=== PATIENT | male | born 1950 | race Caucasian/White ===

== ENCOUNTER 2018-02-23 20:25 | Outpatient (CLI) | payer MEDICARE | END 2018-02-23 20:26 | disposition short-term general hospital (02) | LOC: EMS 20:25 | PROVIDERS: ATTEND Surgery | DX: R07.9 Chest pain, unspecified (principal); R53.83 Other fatigue | CPT/HCPCS: A0425; A0427 ==

== ENCOUNTER 2019-10-25 15:59 | Outpatient (CLI) | payer MEDICARE ==
--- NOTE | 2019-10-26 10:56 | XRAY Report ---
Reason: R HIP PAIN Procedure Date: 10/25/2019 Accession Number: [id number] / [id number] Procedure: XR - Pelvis 1 View CPT Code: Final Report FULL RESULT: EXAM: PELVIS RADIOGRAPHY EXAM DATE: 10/25/2019 04:49 PM. CLINICAL HISTORY: R HIP PAIN. COMPARISON: None. TECHNIQUE: 1 view. FINDINGS: Bones: DJD lower lumbosacral spine No fracture or bone lesion. Joints: Bilateral hips mild joint space narrowing. Soft Tissues: Normal. No soft tissue swelling. IMPRESSION: Mild DJD bilateral hips RADIA
== END 2019-10-25 16:00 | disposition home or self-care (01) ==
LOC: DI 15:59
PROVIDERS: ATTEND Physician Assistant Medical
DX: M16.0 Bilateral primary osteoarthritis of hip (principal)
CPT/HCPCS: 72170

== ENCOUNTER 2021-03-25 08:00 | Outpatient (CLI) | payer MEDICARE | END 2021-03-25 23:59 | disposition home or self-care (01) | LOC: LAB.N 08:00 | PROVIDERS: ATTEND Nurse Practitioner | DX: R05 Cough (principal); Z20.822 Contact with and (suspected) exposure to COVID-19 ==

== ENCOUNTER 2021-03-28 14:30 | Outpatient (CLI) | payer MEDICARE ==
--- NOTE | 2021-03-28 15:43 | XRAY Report ---
PROCEDURE: Chest 2 View X-Ray INDICATIONS: WALKING PNEUMONIA TECHNIQUE: 2 view(s) of the chest. COMPARISON: Plain films dated 08/20/2016 FINDINGS: Surgical changes and devices: None. Lungs and pleura: No pleural effusions or pneumothorax. Lungs are clear. Mediastinum: Mediastinal contours are normal. Heart size is normal. Bones and chest wall: No suspicious bony abnormalities. Soft tissues appear unremarkable. IMPRESSION: No acute process. Reviewed by: Josse Araiza MD on 03/28/2021 3:41 PM PDT Approved by: Josse Araiza MD on 03/28/2021 3:41 PM PDT Station ID: [id number]
== END 2021-03-28 14:31 | disposition home or self-care (01) ==
LOC: DI.N 14:30
PROVIDERS: ATTEND Nurse Practitioner
DX: J18.9 Pneumonia, unspecified organism (principal); R42 Dizziness and giddiness
CPT/HCPCS: 36415; 80053; 85025

== ENCOUNTER 2021-03-28 15:18 | Outpatient (CLI) | payer MEDICARE ==
[2021-03-28 17:41] LABS: BASOPHILS % (AUTO) 0.5 %; EOSINOPHILS # (AUTO) 0.2 10^3/uL (0.0-0.7); EOSINOPHILS % (AUTO) 2.8 %; HCT - HEMATOCRIT 45.4 % (42.0-52.0); HGB - HEMOGLOBIN 14.9 g/dL (14.0-18.0); LYMPHOCYTES # (AUTO) 2.5 10^3/uL (1.5-3.5); LYMPHOCYTES % (AUTO) 32.7 %; MEAN CORPUSCULAR HEMOGLOBIN 31.1 pg (27.0-31.0); MEAN CORPUSCULAR HGB CONC 32.8 g/dL (32.0-36.0); MEAN CORPUSCULAR VOLUME 94.8 fL (80.0-94.0); MEAN PLATELET VOLUME 9.1 fL (7.4-11.4); MONOCYTES # (AUTO) 0.5 10^3/uL (0.0-1.0); NEUTROPHILS # (AUTO) 4.5 10^3/uL (1.5-6.6); NEUTROPHILS % (AUTO) 57.6 %; PLT - PLATELET COUNT 371 10^3/uL (130-450); RED BLOOD COUNT 4.79 10^6/uL (4.70-6.10); RED CELL DISTRIBUTION WIDTH 13.7 % (12.0-15.0); WHITE BLOOD COUNT 7.7 x10^3/uL (4.8-10.8)
[2021-03-28 17:53] LABS: ALBUMIN 4.4 g/dL (3.2-5.5); ALBUMIN/GLOBULIN RATIO 1.6 (1.0-2.2); BILIRUBIN,TOTAL 0.9 mg/dL (0.2-1.0); CALCIUM 9.5 mg/dL (8.5-10.3); CREATININE 0.8 mg/dL (0.6-1.2); POTASSIUM 4.5 mmol/L (3.5-5.0); TOTAL PROTEIN 7.2 g/dL (6.7-8.2)
== END 2021-03-28 23:59 | disposition home or self-care (01) ==
LOC: LAB.N 15:18
PROVIDERS: ATTEND Nurse Practitioner
DX: R42 Dizziness and giddiness (principal)
CPT/HCPCS: 36415; 80053; 85025

== ENCOUNTER 2021-10-03 12:33 | Emergency (ER) | payer MEDICARE ==
--- NOTE | 2021-10-03 13:05 | ED Physician Documentation ---
PD HPI ABD PAIN - Stated complaint Stated Complaint: MALE - Chief complaint Chief Complaint: Abd Pain - History obtained from History obtained from: Patient - Additional information Additional information: 71-year-old gentleman with history of NM and remote gallbladder removal presents with 1 month worth of postprandial right upper quadrant pain and more acutely over the last 2 days he has had bloody stools which he describes as normal stools but mostly blood in the bowl. Is not associated with any new abdominal pain or rectal pain. He does not remember when his last colonoscopy was. Denie s weight loss. Review of Systems Ten Systems: 10 systems reviewed and negative Constitutional: reports: Reviewed and negative Nose: reports: Reviewed and negative Cardiac: reports: Reviewed and negative Respiratory: reports: Reviewed and negative PD PAST MEDICAL HISTORY - Past Medical History Cardiovascular: Hypertension, [place] Respiratory: Pneumonia Endocrine/Autoimmune: Type 2 diabetes GI: GERD Musculoskeletal: Chronic back pain - Past Surgical History Past Surgical History: Yes General: Cholecystectomy, Other Ortho: Rotator cuff repair Cardiovascular: Coronary stent HEENT: Detached retina repair - Present Medications Home Medications: Ambulatory Orders Medication Instructions Recorded Confirmed Aspirin 81 mg PO DAILY 08/24/13 10/03/21 Amlodipine Besylate [Norvasc] 10 mg DAILY 07/08/15 10/03/21 Cholecalciferol (Vitamin D3) 2,500 unit PO DAILY 07/08/15 10/03/21 [Vitamin D-3] Finasteride 5 mg PO DAILY 07/08/15 10/03/21 Latanoprost 0.005% Ophth Drops 1 drop EACHEYE QPM 07/08/15 10/03/21 [Xalatan Ophth Drops] Metformin HCl 500 mg PO BID #60 tablet 07/08/15 10/03/21 Nettle Root 300 mg PO DAILY 07/08/15 10/03/21 Nitroglycerin [Nitrostat] 0.4 mg PO DAILY PRN 07/08/15 10/03/21 Tamsulosin [Flomax] 1 tab PO DAILY 07/08/15 10/03/21 raNITIdine [Zantac] 150 mg PO DAILY PRN 08/20/16 10/03/21 Atorvastatin [Lipitor] 40 mg PO DAILY 08/31/19 10/03/21 Baclofen 10 mg PO BID PRN 08/31/19 10/03/21 Lactobacillus Acidophilus 1 each PO DAILY 08/31/19 10/03/21 [Probiotic Acidophilus] Metoprolol Succinate 150 mg PO DAILY 08/31/19 10/03/21 Tramadol HCl 50 mg PO DAILY PM 08/31/19 10/03/21 Trazodone HCl 50 mg PO DAILY PM PRN 08/31/19 10/03/21 glipiZIDE [Glipizide] 5 mg PO DAILY PM 08/31/19 10/03/21 metroNIDAZOLE [Flagyl] 500 mg PO TID 7 Days #21 tablet 10/03/21 - Allergies Allergies/Adverse Reactions: Allergies Allergy/AdvReac Type Severity Reaction Status Date / Time venom-honey bee Allergy Intermediate Respiratory Verified 10/03/21 12:47 niacin Allergy Unknown Verified 10/03/21 12:47 methylprednisolone AdvReac Unknown Verified 10/03/21 12:47 [From Medrol] NSAIDS (Non-Steroidal AdvReac Unknown Verified 10/03/21 12:47 Anti-Inflamma - Social History Does the pt smoke?: No Smoking Status: Never smoker Does the pt drink ETOH?: No Does the pt have substance abuse?: No - Immunizations Immunizations are current?: Yes - POLST Patient has POLST: No PD ED PE NORMAL - Vitals Vital signs reviewed: Yes - General General: Alert and oriented X 3, No acute distress - HEENT HEENT: PERRL, EOMI - Neck Neck: Supple, no meningeal sign, No bony TTP - Cardiac Cardiac: RRR, No murmur - Respiratory Respiratory: No respiratory distress, Clear bilaterally - Abdomen Abdomen: Normal bowel sounds, Soft, Non tender - Rectal Rectal: Other (No external hemorrhoids) - Derm Derm: Normal color, Warm and dry - Neuro Neuro: Alert and oriented X 3, Normal speech Results - Vitals Vitals: Vital Signs - 24 hr 10/03/21 10/03/21 12:42 13:35 Temperature 36.3 C L 36.9 C Heart Rate 62 58 L Respiratory 18 Rate Blood Pressure 129/76 129/73 O2 Saturation 99 99 Oxygen O2 Source Room air - Labs Labs: Laboratory Tests 10/03/21 10/03/21 10/03/21 13:20 13:20 13:38 WBC 7.5 RBC 4.89 Hgb 15.7 Hct 45.9 MCV 93.9 MCH 32.1 H MCHC 34.2 RDW 13.0 Plt Count 313 MPV 8.8 Neut # (Auto) 4.7 Lymph # (Auto) 2.1 Haakon # (Auto) 0.5 Eos # (Auto) 0.2 Baso # (Auto) 0.0 Absolute Nucleated RBC 0.00 Nucleated RBC % 0.0 Sodium 137 Potassium 4.4 Chloride 103 Carbon Dioxide 21 Anion Gap 13.0 BUN 14 Creatinine 1.0 Estimated GFR (MDRD) 74 L Glucose 156 H Calcium 9.6 Total Bilirubin 0.8 AST 20 ALT 27 Alkaline Phosphatase 65 Total Protein 7.6 Albumin 4.4 Globulin 3.2 Albumin/Globulin Ratio 1.4 Lipase 30 Urine Color YELLOW Urine Clarity CLEAR Urine pH 6.0 Ur Specific [place] 1.020 Urine Protein NEGATIVE Urine Glucose (UA) NEGATIVE Urine Ketones NEGATIVE Urine Occult Blood NEGATIVE Urine Nitrite NEGATIVE Urine Bilirubin NEGATIVE Urine Urobilinogen 0.2 (NORMAL) Ur Leukocyte Esterase NEGATIVE Ur Microscopic Review NOT INDICATED Urine Culture Comments NOT INDICATED - Rads (name of study) CT A/P Radiology: EMP read contemporaneously PD MEDICAL DECISION MAKING - ED course ED course: 71-year-old gentleman presents with a months worth of right-sided abdominal pain especially after eating and now more acutely some hematochezia. Its been a long time since his last colonoscopy. On CT he is found to have colitis of the ascending and first part of the transverse colon which is likely causing his symptoms. He is in minimal pain at this point so doubt ischemic colitis. We will trial some Flagyl, but he understands he needs to follow-up with his primary care for referral for expedited colonoscopy. Departure - Departure Disposition: 01 Home, Self Care Clinical Impression: Colitis Condition: Good Record reviewed to determine appropriate education?: Yes Instructions: ED Gastroenteritis Bacterial Prescriptions: metroNIDAZOLE [Flagyl] 500 mg PO TID 7 Days #21 tablet Comments: Your prescription was sent electronically to [facility] in [place]. As discussed, it looks like you have a case of acsending and transverse colitis which would explain the right-sided abdominal pain and the bleeding. We are going to trial some antibiotics for this, but you do need to follow-up with your primary care physician for a referral for colonoscopy within the next couple of months. Return for new or worsening symptoms.
[2021-10-03 13:22] LABS: BASOPHILS % (AUTO) 0.5 %; EOSINOPHILS # (AUTO) 0.2 10^3/uL (0.0-0.7); EOSINOPHILS % (AUTO) 2.4 %; HCT - HEMATOCRIT 45.9 % (42.0-52.0); HGB - HEMOGLOBIN 15.7 g/dL (14.0-18.0); LYMPHOCYTES # (AUTO) 2.1 10^3/uL (1.5-3.5); LYMPHOCYTES % (AUTO) 28.5 %; MEAN CORPUSCULAR HEMOGLOBIN 32.1 pg (27.0-31.0); MEAN CORPUSCULAR HGB CONC 34.2 g/dL (32.0-36.0); MEAN CORPUSCULAR VOLUME 93.9 fL (80.0-94.0); MEAN PLATELET VOLUME 8.8 fL (7.4-11.4); MONOCYTES # (AUTO) 0.5 10^3/uL (0.0-1.0); MONOCYTES % (AUTO) 6.3 %; NEUTROPHILS # (AUTO) 4.7 10^3/uL (1.5-6.6); NEUTROPHILS % (AUTO) 61.8 %; PLT - PLATELET COUNT 313 10^3/uL (130-450); RED BLOOD COUNT 4.89 10^6/uL (4.70-6.10); WHITE BLOOD COUNT 7.5 x10^3/uL (4.8-10.8)
[2021-10-03] MEDS ORDERED: IOVERSOL 320 100 ML VIAL IVP ONE ×2 (13:25→18:45)
[2021-10-03 13:37] LABS: ALBUMIN 4.4 g/dL (3.2-5.5); ALBUMIN/GLOBULIN RATIO 1.4 (1.0-2.2); BILIRUBIN,TOTAL 0.8 mg/dL (0.2-1.0); CALCIUM 9.6 mg/dL (8.5-10.3); POTASSIUM 4.4 mmol/L (3.5-5.0); TOTAL PROTEIN 7.6 g/dL (6.7-8.2)
[2021-10-03 14:14] LABS: BILIRUBIN,URINE NEGATIVE (NEGATIVE); GLUCOSE, URINE (UA) NEGATIVE (NEGATIVE); KETONES,URINE (UA) NEGATIVE (NEGATIVE); LEUKOCYTE ESTERASE, URINE NEGATIVE (NEGATIVE); NITRITE,URINE NEGATIVE (NEGATIVE); OCCULT BLOOD,URINE NEGATIVE (NEGATIVE); PROTEIN,URINE NEGATIVE (NEGATIVE); UROBILINOGEN,URINE 0.2 (NORMAL) E.U./dL (NORMAL)
[2021-10-03 14:20] LABS: CLARITY,URINE CLEAR (CLEAR)
--- NOTE | 2021-10-03 14:50 | CT Report ---
PROCEDURE: Abdomen/Pelvis W INDICATIONS: RUQ pain and hematochezia CONTRAST: IV CONTRAST: Optiray 320 ml: 100 PO CONTRAST: *NO PO CONTRAST TECHNIQUE: After the administration of intravenous contrast, 5 mm thick sections acquired from the diaphragms to the symphysis. 5 mm thick coronal and sagittal reformats were acquired. For radiation dose reducti on, the following was used: automated exposure control, adjustment of mA and/or kV according to pascula ent size. COMPARISON: CT abdomen pelvis 07/08/2015. FINDINGS: Image quality: Excellent. ABDOMEN: Lung bases: There is a calcified nodule in the left lower lobe consistent sequelae of old granulomato us disease. Heart size is normal. Solid organs: Evaluation of the liver demonstrates no focal hepatic lesions. Gallbladder is surgicall y absent. Biliary system is non dilated. The spleen is normal in size. Pancreas enhances normally wi thout peripancreatic fat stranding or fluid collections. No adrenal nodules. Kidneys demonstrate no hydronephrosis. Peritoneum and bowel: Stomach and small bowel loops demonstrate normal wall thickness and caliber. T he appendix is normal in appearance. There is mild segmental wall thickening of the ascending colon, hepatic flexure, and proximal transverse colon system with a colitis. Colonic diverticulosis is demon strated in the sigmoid colon without acute diverticulitis. No free fluid or air. Nodes and vessels: No retroperitoneal or mesenteric adenopathy by size criteria. Aorta and inferior vena cava are normal in size. Miscellaneous: No ventral hernias. PELVIS: Genitourinary: Bladder wall thickness is normal. There is mild heterogeneous enlargement of the pros [place]. Miscellaneous: No inguinal hernias or adenopathy. Bones: No suspicious bony lesions. No vertebral body compression fractures. IMPRESSION: 1. Segmental colonic wall thickening of the ascending and proximal transverse colon consistent with a n infectious or inflammatory colitis. 2. No evidence of appendicitis. 3. Colonic diverticulosis without acute diverticulitis. Reviewed by: Gabriel Herndon MD on 10/03/2021 2:48 PM PST Approved by: Gabriel Herndon MD on 10/03/2021 2:48 PM PST Station ID: [id number]
[2021-10-03 15:27] VITALS: BP 130/80
[2021-10-03] MEDS ORDERED: iohexoL-300 100 ML VIAL IVP ONE (18:39)
== END 2021-10-03 15:27 | disposition home or self-care (01) ==
LOC: ED 12:33
DX: K52.9 Noninfective gastroenteritis and colitis, unspecified (principal); I10 Essential (primary) hypertension; E11.9 Type 2 diabetes mellitus without complications; Z79.84 Long term (current) use of oral hypoglycemic drugs; Z95.5 Presence of coronary angioplasty implant and graft; Z79.82 Long term (current) use of aspirin
CPT/HCPCS: 36415; 74177; 80053; 81003; 83690; 85025; 99284; Q9967; 81001; 87086

== ENCOUNTER 2022-06-30 17:07 | Emergency (ER) | payer MEDICARE ==
[2022-06-30 17:19] VITALS: BP 145/78
[2022-06-30] MEDS ORDERED: guaiFENesin/CODEINE 5 ML UDC PO STA (17:39)
[2022-06-30] MEDS ORDERED: AMOX/CLAV 875 MG/125 MG TABLET PO STA (17:39)
--- NOTE | 2022-06-30 17:40 | ED Physician Documentation ---
History of Present Illness - Stated complaint Stated Complaint: COUGH - Chief complaint Chief Complaint: General - History obtained from History obtained from: Patient (72-year-old gentleman with history of coronary disease presents with an illness marked by prominent sinus pain and drainage for the last week. Started having a productive cough today without shortness of breath. Has had a low-grade fever.) Review of Systems Ears: denies: Ear pain Nose: reports: Rhinorrhea / runny nose, Congestion Throat: denies: Sore throat Respiratory: reports: Cough. denies: Dyspnea PD PAST MEDICAL HISTORY - Past Medical History Cardiovascular: Hypertension, [place] Respiratory: Pneumonia Endocrine/Autoimmune: Type 2 diabetes GI: GERD Musculoskeletal: Chronic back pain - Past Surgical History Past Surgical History: Yes General: Cholecystectomy, Other Ortho: Rotator cuff repair Cardiovascular: Coronary stent HEENT: Detached retina repair - Present Medications Home Medications: Ambulatory Orders Medication Instructions Recorded Confirmed Aspirin 81 mg PO DAILY 08/24/13 10/03/21 Amlodipine Besylate [Norvasc] 10 mg DAILY 07/08/15 10/03/21 Cholecalciferol (Vitamin D3) 2,500 unit PO DAILY 07/08/15 10/03/21 [Vitamin D-3] Finasteride 5 mg PO DAILY 07/08/15 10/03/21 Latanoprost 0.005% Ophth Drops 1 drop EACHEYE QPM 07/08/15 10/03/21 [Xalatan Ophth Drops] Metformin HCl 500 mg PO BID #60 tablet 07/08/15 10/03/21 Nettle Root 300 mg PO DAILY 07/08/15 10/03/21 Nitroglycerin [Nitrostat] 0.4 mg PO DAILY PRN 07/08/15 10/03/21 Tamsulosin [Flomax] 1 tab PO DAILY 07/08/15 10/03/21 raNITIdine [Zantac] 150 mg PO DAILY PRN 08/20/16 10/03/21 Atorvastatin [Lipitor] 40 mg PO DAILY 08/31/19 10/03/21 Baclofen 10 mg PO BID PRN 08/31/19 10/03/21 Lactobacillus Acidophilus 1 each PO DAILY 08/31/19 10/03/21 [Probiotic Acidophilus] Metoprolol Succinate 150 mg PO DAILY 08/31/19 10/03/21 Tramadol HCl 50 mg PO DAILY PM 08/31/19 10/03/21 Trazodone HCl 50 mg PO DAILY PM PRN 08/31/19 10/03/21 glipiZIDE [Glipizide] 5 mg PO DAILY PM 08/31/19 10/03/21 metroNIDAZOLE [Flagyl] 500 mg PO TID 7 Days #21 tablet 10/03/21 Albuterol Sulf [Ventolin Hfa 1 - 2 puffs INH Q4HR PRN #1 gm 06/30/22 Inhaler] Amox/Clav 875/125 [Augmentin] 1 each PO Q12H #20 tablet 06/30/22 guaiFENesin/CODEINE [Robitussin AC] 5 - 10 ml PO Q6H PRN #120 ml 06/30/22 - Allergies Allergies/Adverse Reactions: Allergies Allergy/AdvReac Type Severity Reaction Status Date / Time venom-honey bee Allergy Intermediate Respiratory Verified 06/30/22 17:15 niacin Allergy Unknown Verified 06/30/22 17:15 methylprednisolone AdvReac Unknown Verified 06/30/22 17:15 [From Medrol] NSAIDS (Non-Steroidal AdvReac Unknown Verified 06/30/22 17:15 Anti-Inflamma - Social History Does the pt smoke?: No Smoking Status: Never smoker Does the pt drink ETOH?: No Does the pt have substance abuse?: No - Immunizations Immunizations are current?: Yes - POLST Patient has POLST: No PD ED PE NORMAL - Vitals Vital signs reviewed: Yes - General General: Alert and oriented X 3, No acute distress - HEENT HEENT: PERRL, EOMI, Ears normal, Pharynx benign, Other (Bilateral maxillary sinus tenderness) - Cardiac Cardiac: RRR, No murmur - Respiratory Respiratory: No respiratory distress, Clear bilaterally - Abdomen Abdomen: Non tender - Back Back: No CVA TTP, No spinal TTP - Derm Derm: Normal color, Warm and dry - Extremities Extremities: No edema, No calf tenderness / cord - Neuro Neuro: Alert and oriented X 3, Normal speech Results - Vitals Vitals: Vital Signs - 24 hr 06/30/22 17:15 Temperature 37.4 C Heart Rate 91 Respiratory 18 Rate Blood Pressure 145/78 H O2 Saturation 96 Oxygen O2 Source Room air Departure - Departure Disposition: 01 Home, Self Care Clinical Impression: Sinusitis Qualifiers: Sinusitis location: maxillary Chronicity: acute Recurrence: non-recurrent Qualified Code(s): J01.00 - Acute maxillary sinusitis, unspecified Condition: Good Record reviewed to determine appropriate education?: Yes Instructions: ED Sinusitis Abx Tx Prescriptions: Albuterol Sulf [Ventolin Hfa Inhaler] 1 - 2 puffs INH Q4HR PRN #1 gm PRN Reason: Shortness Of Air/Wheezing Amox/Clav 875/125 [Augmentin] 1 each PO Q12H #20 tablet guaiFENesin/CODEINE [Robitussin AC] 5 - 10 ml PO Q6H PRN #120 ml PRN Reason: Cough Comments: Lungs are sounding pretty good to me, I am covering you with antibiotics for sinusitis, if there is a mild pneumonia that will cover you as well. I also sent refills of your albuterol and a prescription for codeine to [facility] in [place]. Return for new or worsening symptoms. Follow-up with your doctor in a week if not better.
== END 2022-06-30 17:48 | disposition home or self-care (01) ==
LOC: ED 17:07
DX: J01.00 Acute maxillary sinusitis, unspecified (principal)
CPT/HCPCS: 99282; 99283; A9270